=== PATIENT | male | born 1975 | race Caucasian/White ===

== ENCOUNTER 2016-10-10 11:25 | Emergency (ER) | payer OTHER ==
--- NOTE | ~2016-10-10 | CR21 ---
[facility]. [facility] A Service of [facility] & [facility] RADIOLOGY TEXT RESULTS PATIENT: ANDREA OCHOA LOCATION: SED : 73 UNIT #: [id number] AGE: [address]: Wilmer Pace SEX: M ORDER DR: [id number] [place] [id number] E MR#: [id number] Acc #: [id number] NAME: ANDREA OCHOA : 1975 SEX: M STUDY DATE/TIME: 10/10/2016 11:14 UNIT: SED ROOM: STUDY DESCRIPTION: CR Ankle Min 3 Views Rt Attending Physician: Wilmer Pace P.A.-C. Referring Physician: Wilmer Pace P.A.-C. Ordering Physician: Wilmer Pace P.A.-C. Primary Care Physician: Ricardo Colin M.D. MEDICAL IMAGING REPORT This report is preliminary unless electronic signature is present. EXAM Right ankle, 3 views. HISTORY Pain for 1 week since fall. FINDINGS AP, lateral, and oblique projections of the ankle show satisfactory integrity of the joint mortise with a smooth articular surface. There is no identifiable fracture, dislocation, or radiopaque foreign body. IMPRESSION Normal ankle. Dictated by... Josse Randall M.D. THIS IS AN ELECTRONICALLY VERIFIED REPORT Josse Randall M.D. at 10/10/2016 3:50 PM TEV/kalin TD: 10/10/2016 13:43 JOB #: [id number] MEDICAL IMAGING REPORT Page 1 of 1
--- NOTE | ~2016-10-10 | CR253 ---
[facility]. [facility] A Service of [facility] & [facility] RADIOLOGY TEXT RESULTS PATIENT: ANDREA OCHOA LOCATION: SED : 73 UNIT #: [id number] AGE: [address]: Wilmer Pace SEX: M ORDER DR: [id number] [place] [id number] E MR#: [id number] Acc #: [id number] NAME: ANDREA OCHOA : 1975 SEX: M STUDY DATE/TIME: 10/10/2016 11:14 UNIT: SED ROOM: STUDY DESCRIPTION: CR Tibia and Fibula 2 Views Rt Attending Physician: Wilmer Pace P.A.-C. Referring Physician: Wilmer Pace P.A.-C. Ordering Physician: Wilmer Pace P.A.-C. Primary Care Physician: Ricardo Colin M.D. MEDICAL IMAGING REPORT This report is preliminary unless electronic signature is present. EXAM Right tibia and fibula, 2 views, 10/10/16 COMPARISON STUDIES Ankle series, same date HISTORY Pain for 1 week since fall on angel. FINDINGS Normal. Dictated by... Josse Randall M.D. THIS IS AN ELECTRONICALLY VERIFIED REPORT Josse Randall M.D. at 10/10/2016 3:50 PM TEV/evelyn TD: 10/10/2016 13:35 JOB #: [id number] MEDICAL IMAGING REPORT Page 1 of 1
--- NOTE | ~2016-10-10 | US85 ---
[facility] A Service of [facility] RADIOLOGY TEXT RESULTS PATIENT: ANDREA OCHOA LOCATION: SED : 73 UNIT #: [id number] AGE: [address]: Wilmer Pace SEX: M ORDER DR: [id number] [address] [id number] [id number] E MR#: [id number] Acc #: [id number] NAME: ANDREA OCHOA : 1975 SEX: M STUDY DATE/TIME: 10/10/2016 12:42 UNIT: SED ROOM: STUDY DESCRIPTION: [facility] [place] [employer] [place] Attending Physician: Wilmer Pace P.A.-C. Referring Physician: Wilmer Pace P.A.-C. Ordering Physician: Wilmer Pace P.A.-C. Primary Care Physician: Ricardo Colin M.D. MEDICAL IMAGING REPORT This report is preliminary unless electronic signature is present. EXAM Right lower extremity venous duplex, 10/10/2016. HISTORY Right lower extremity pain and swelling for 1 week. Evaluate for deep vein thrombosis. TECHNIQUE Venous ultrasound examination of the right lower extremity was performed using grayscale, spectral Doppler and color flow Doppler imaging. FINDINGS The examination is negative. There is no evidence of right lower extremity deep venous thrombus from the groin to the lower calf. Visualized greater saphenous vein is also patent. IMPRESSION Negative examination. No evidence of right lower extremity deep venous thrombosis. Dictated by... Chano Loaiza M.D. THIS IS AN ELECTRONICALLY VERIFIED REPORT Chano Loaiza M.D. at 10/11/2016 7:54 AM JAIRON/delaney TD: 10/10/2016 14:52 JOB #: [id number] [facility] A Service [facility] RADIOLOGY TEXT RESULTS PATIENT: ANDREA OCHOA LOCATION: SED : 73 UNIT #: [id number] AGE: [address]: Wilmer Pace PAC SEX: M ORDER DR: MEDICAL IMAGING REPORT Page 1 of 1
[~2016-10-10 11:25] MED LIST: ALLEGRA
== END 2016-10-10 13:14 | disposition home or self-care (01) ==
LOC: SED 11:25
DX: S90.01XA Contusion of right ankle, initial encounter (principal); W01.0XXA Fall on same level from slipping, tripping and stumbling without subsequent striking against object, initial encounter; M79.89 Other specified soft tissue disorders
CPT/HCPCS: 73590; 73610; 93971; 99284